=== PATIENT | male | born 1955 | race Caucasian/White ===

== ENCOUNTER 2018-10-27 16:00 | Inpatient (IN) ==
[2018-10-27] MEDS ORDERED: Pantoprazole Inj 40 MG Vial IV.PUSH ONE (17:02)
[2018-10-27] MEDS ORDERED: Morphine Inj 4 MG/ML Vial IV.PUSH ONE (17:02)
--- NOTE | 2018-10-27 17:08 | ED ---
HPI General Chief Complaint: Recheck/Abnormal Lab/Rx Stated Complaint: Poss Pancreatitis Time Seen by Provider: 10/27/18 16:39 Source: patient History of Present Illness HPI narrative: 63 year-old male with a past medical history of smoking, chronic back pain, alcohol abuse, restless leg syndrome presents to the emergency room complaining of epigastric and left lower quadrant abdominal pain that started 2 days ago. Pain is moderate to severe worse with palpation and eating and better with rest. Patient denies hematemesis or melena. Patient was seen earlier today at the [facility] and was told to report to the emergency room for acute pancreatitis. Patient denies fever, chills, nausea, vomiting or chest pain. Patient had increased alcohol intake last week with increased Zantac use. Related Data Home Medications Medication Instructions Recorded Confirmed carbidopa 10/27/18 omeprazole 20 mg PO DAILY 10/27/18 10/27/18 Allergies Allergy/AdvReac Type Severity Reaction Status Date / Time No Known Allergies Allergy Verified 10/27/18 16:01 Review of Systems Constitutional Denies fever(s) Eyes Denies change in vision ENT Denies headache(s) and Denies nasal congestion Cardiovascular Denies chest pain Respiratory Denies dyspnea Gastrointestinal Reports abdominal pain and Reports nausea Genitourinary Denies difficulty urinating Musculoskeletal Denies myalgias Integumentary/Breasts Denies rash Neurologic Denies headache(s) Psychiatric Denies depression Endocrine Denies polyuria Hematologic/Lymphatic Denies easy bruising PMFSH Medical History Medical History History of neuropathy (Acute) History of restless legs syndrome (Acute) Hx of gastroesophageal reflux (GERD) (Acute) Surgical History Surgical History History of bladder surgery (Acute) Hx of inguinal hernia repair (Acute) Hx of vasectomy (Acute) Social History Social History Substance History: No History of Abuse Second Hand Smoke Exposure: No Smoking Status: Current every day smoker Tobacco Type: Cigarettes How Often Do You Have a Drink Containing Alcohol: 2 to 4 times a month Recent Travel in [facility] within the Last 8 Weeks: No Recent Out of Country Travel within the Last 8 Weeks: No Immunization History Tetanus Immunization: <5 Years Exam Narrative Exam Narrative: GENERAL: Patient is alert and oriented -3 SKIN: Focused skin assessment warm/dry. HEAD: Atraumatic. Normocephalic. EYES: Pupils equal and round. No scleral icterus. No injection or drainage. ENT: No nasal bleeding or discharge. Mucous membranes pink and moist. NECK: Trachea midline. No JVD. CARDIOVASCULAR: Regular rate and rhythm. No murmur appreciated. RESPIRATORY: No accessory muscle use. Clear to auscultation. Breath sounds equal bilaterally. GASTROINTESTINAL: Abdomen soft, tender epigastric area and left lower quadrant, nondistended. Hepatic and splenic margins not palpable. MUSCULOSKELETAL: No obvious deformities. No clubbing. No cyanosis. No edema. NEUROLOGICAL: Awake and alert. No obvious cranial nerve deficits. Motor grossly within normal limits. Normal speech. PSYCHIATRIC: Appropriate mood and affect; insight and judgment normal. Course Reevaluation(s) Reevaluation #1: Patient condition improved during the ER course especially pain improved. Patient did have any vomiting in the ED.. I personally reexamined and counseled the patient about his diagnosis and results. Time: 18:17 Initial Documented Vital Signs Temperature 97.7 F 10/27/18 16:01 Pulse Rate 61 10/27/18 16:01 Respiratory Rate 16 10/27/18 16:01 Blood Pressure 153/79 H 10/27/18 16:01 Pulse Oximetry 98 10/27/18 16:01 Last Documented Vital Signs Temperature 97.7 F 10/27/18 16:01 Pulse Rate 66 10/27/18 17:37 Respiratory Rate 18 10/27/18 17:37 Blood Pressure 116/77 10/27/18 17:37 Pulse Oximetry 98 10/27/18 17:37 Medical Decision Making [facility] Narrative Medical Screen Exam Complete: Yes Emergency Medical Condition: Yes Lab Data Result diagrams: 10/27/18 16:45 10/27/18 16:45 Lab Results 10/27/18 10/27/18 10/27/18 Range/Units 16:45 16:45 16:45 CBC w Diff Auto diff final WBC 6.5 (4.0-11.0) th/mm3 RBC 5.11 (4.50-5.90) mil/mm3 Hgb 15.4 (13.0-17.0) gm/dL Hct 46.3 (39.0-51.0) % MCV 90.6 (80.0-100.0) fL MCH 30.1 (27.0-34.0) pg MCHC 33.2 (32.0-36.0) % RDW 12.6 (11.6-17.2) % Plt Count 161 (150-450) th/mm3 MPV 9.6 (7.0-11.0) fL Neut % (Auto) 60.0 (16.0-70.0) % Lymph % (Auto) 31.5 (9.0-44.0) % Wetzel % (Auto) 5.2 (0.0-8.0) % Eos % (Auto) 2.3 (0.0-4.0) % Baso % (Auto) 1.0 (0.0-2.0) % Neut # (Auto) 4.0 (1.8-7.7) th/mm3 Lymph # (Auto) 2.0 (1.0-4.8) th/mm3 Wetzel # (Auto) 0.3 (0.0-0.9) th/mm3 Eos # (Auto) 0.1 (0.0-0.4) th/mm3 Baso # (Auto) 0.1 (0.0-0.2) th/mm3 WBC Differential . Differential Comment . PT 9.8 (9.8-11.6) sec INR 1.0 Ratio APTT 22.6 L (23.4-31.7) sec Sodium 140 (136-145) meq/L Potassium 3.7 (3.5-5.1) meq/L Chloride 107 (98-107) meq/L Carbon Dioxide 27.3 (21.0-32.0) meq/L Anion Gap 6 (5-15) meq/L BUN 23 H (7-18) mg/dL Creatinine 0.96 (0.60-1.30) mg/dL Estimated GFR 80 L (>89) mL/min Random Glucose 95 (74-106) mg/dL Calcium 9.0 (8.5-10.1) mg/dL Magnesium 2.3 (1.5-2.5) mg/dL Total Bilirubin 0.6 (0.2-1.0) mg/dL AST 15 (15-37) U/L ALT 20 (12-78) U/L Alkaline Phosphatase 85 (45-117) U/L Troponin I Less than 0.02 L (0.02-0.05) ng/mL Total Protein 7.3 (6.4-8.2) g/dL Albumin 3.9 (3.4-5.0) g/dL Lipase 3397 H (73-393) U/L Imaging Data Radiologist's impression: Abdomen/Pelvis CT 10/27/18 16:59 CONCLUSION: 1. No acute finding is identified to explain the left lower quadrant pain. 2. Nonacute findings include severe atherosclerotic disease and 4 mm nonobstructing left renal stone. Discharge Plan Discharge Disposition Patient Disposition: ED Admit(ED Internal Use Only) Discharge Condition Condition: Fair Discharge Order Discharge Orders: ED Use Only Admit Order (Routine); Ordered 10/27/18 Ordered By: hBavin Gilman Discharge Details Discharge Comment: Case was discussed and reviewed with the admitting physician who accepted the admission to inpatient medicine Diagnosis: Acute pancreatitis Physicians Team ED Provider: Bhavin Gilman Primary Care Provider: [facility] /Orders / Referrals /Forms Prescriptions: No Action omeprazole 20 mg Capsule,Delayed Release(Dr/Ec) 20 mg PO DAILY RF: 0 carbidopa RF: 0 Status ED Status: With Doctor
[2018-10-27] MEDS ORDERED: Sod Chloride 0.9% Inj 1,000 ML IV.SIG SCH (17:15)
[2018-10-27 17:23] LABS: Baso # (Auto) 0.1 th/mm3 (0.0-0.2); Eos # (Auto) 0.1 th/mm3 (0.0-0.4); Eos % (Auto) 2.3 % (0.0-4.0); Hematocrit 46.3 % (39.0-51.0); Hemoglobin 15.4 gm/dL (13.0-17.0); Lymph % (Auto) 31.5 % (9.0-44.0); Mean Corpuscular HGB Conc 33.2 % (32.0-36.0); Mean Corpuscular Hemoglobin 30.1 pg (27.0-34.0); Mean Corpuscular Volume 90.6 fL (80.0-100.0); Mean Platelet Volume 9.6 fL (7.0-11.0); Mono # (Auto) 0.3 th/mm3 (0.0-0.9); Mono % (Auto) 5.2 % (0.0-8.0); Platelet Count 161 th/mm3 (150-450); Red Blood Count 5.11 mil/mm3 (4.50-5.90); Red Cell Distribution Width 12.6 % (11.6-17.2); White Blood Count 6.5 th/mm3 (4.0-11.0)
[2018-10-27 17:37] LABS: Activated Partial Thrombo Time 22.6 sec (23.4-31.7); Prothrombin Time 9.8 sec (9.8-11.6)
[2018-10-27 17:38] LABS: Chloride 107 meq/L (98-107); Potassium 3.7 meq/L (3.5-5.1); Sodium 140 meq/L (136-145)
[2018-10-27 17:43] LABS: Albumin 3.9 g/dL (3.4-5.0); Anion Gap 6 meq/L (5-15); Blood Urea Nitrogen 23 mg/dL (7-18); Carbon Dioxide 27.3 meq/L (21.0-32.0); Glucose,Random 95 mg/dL (74-106); Magnesium 2.3 mg/dL (1.5-2.5)
[2018-10-27 17:45] LABS: Alanine Aminotransferase 20 U/L (12-78)
[2018-10-27 17:46] LABS: Aspartate Aminotransferase 15 U/L (15-37); Glomerular Filtration Rate 80 mL/min (>89)
[2018-10-27 17:47] LABS: Total Protein 7.3 g/dL (6.4-8.2)
[2018-10-27 17:48] LABS: Alkaline Phosphatase 85 U/L (45-117)
[2018-10-27 17:49] LABS: Lipase 3397 U/L (73-393)
--- NOTE | 2018-10-27 18:00 | CT ---
EXAM DATE: 10/27/2018 5:51 PM EST AGE/SEX: 63 years / Male INDICATIONS: Lower left quadrant pain. CLINICAL DATA: This is the patient's initial encounter. Patient reports that signs and symptoms have been present for 2 days and indicates a pain score of 7/10. MEDICAL/SURGICAL HISTORY: Gastroesophageal reflux disease. Neuropathy. Inguinal hernia repair. Bladder surgery. Vasectomy. ORAL CONTRAST: No oral contrast ingested. RADIATION DOSE: 8.85 CTDI (mGy) COMPARISON: No prior exams available for comparison. TECHNIQUE: Multiple contiguous axial images were obtained through the abdomen and pelvis following b olus infusion of 95 ml Omnipaque 350 (iohexol) nonionic water-soluble contrast as a single exam dos e. No oral contrast ingested. Using automated exposure control and adjustment of the mA and/or kV ac cording to patient size, radiation dose was kept as low as reasonably achievable to obtain optimal di agnostic quality images. DICOM format image data is available electronically for review and comparis on. FINDINGS: Lower chest: No acute abnormality is identified. Hepatobiliary: No focal liver lesion is identified. Hepatic vasculature demonstrates no abnormality. No calcified gallstones are present. Kidneys: No hydronephrosis or mass. There is a 4 x 3 mm nonobstructing stone in the left mid kidney. No ureteral stone is visualized. Adrenal Glands: Within normal limits. Spleen: Within normal limits. Pancreas: Within normal limits. Vascular: The aorta is nonaneurysmal. There is severe atherosclerotic disease with ectatic infrarenal aorta. Bowel/Mesentery: The stomach and small bowel demonstrate no abnormality. No acute colon abnormality i s seen. There is no free intraperitoneal air or fluid. Appendix is normal. Sigmoid colon demonstrates no acute abnormality. Abdominal Wall: No hernia is visualized. Retroperitoneum: No lymphadenopathy. Bladder: No wall thickening or mass. Reproductive: Within normal limits. Inguinal: No lymphadenopathy or hernia. Musculoskeletal: No acute osseous abnormality is identified. There are mild degenerative changes of t he lumbar spine. CONCLUSION: 1. No acute finding is identified to explain the left lower quadrant pain. 2. Nonacute findings include severe atherosclerotic disease and 4 mm nonobstructing left renal stone . Electronically signed by: Germán Argueta MD Board Certified Radiologist 10/27/2018 5:59 PM EST
[2018-10-27 18:41] LABS: Bilirubin,Urine Negative (Negative); Clarity,Urine Clear (Clear); Color,Urine Yellow (Yellw/Straw); Glucose,Urine (UA) Negative (Negative); Leukocyte Esterase,Urine Negative (Negative); Nitrite,Urine Negative (Negative); PH,Urine 8.5 (5.0-8.5); Urobilinogen,Urine 0.2 mg/dL (Less than 2)
[2018-10-27 18:48] LABS: RBC,Urine 0-3 /hpf (0-3); Squamous Epithelial Cell,Urine 0-5 /hpf (0-5); WBC,Urine 0-5 /hpf (0-5)
[2018-10-27] MEDS: Sod Chloride 0.9% Inj 1,000 ML IV.CONT SCH (21:23)
[2018-10-27] MEDS: Morphine Inj 4 MG/ML Vial IV.PUSH PRN (22:58)
[2018-10-28] MEDS: Morphine Inj 4 MG/ML Vial IV.PUSH PRN ×2 (03:24→09:15)
[2018-10-28] MEDS: Sod Chloride 0.9% Inj 1,000 ML IV.CONT SCH (09:08)
[2018-10-28] MEDS ORDERED: Pantoprazole Sodium 20 MG DR Tablet PO SCH (11:30)
[2018-10-28] MEDS ORDERED: Aluminum/Magnesium/Simethacone Susp 30 ML UDC PO ONE (13:49)
--- NOTE | 2018-10-28 13:51 | P.HPIM ---
History of Present Illness Primary Care Physician: Physician [facility] History of Present Illness: 63-year-old white male being admitted for intractable abdominal pain Patient was in his USOH until a few days ago when he began developing worsening of his intermittent chronic abdominal pain. At that time he had drunk a good bit of alcohol at a social occasion and shortly afterwards started having a flareup of his abdominal pain. Went to his [place] doctor in the clinic, had some blood tests run, was told he had pancreatitis and was directed to go to the emergency department. Patient reports that he has been having abdominal pains over the past 5 months intermittently, has been on a PPI to address the abdominal pain as well as an NSAID to address his arthritis/carpal tunnel. He has been tried on ranitidine as well as omeprazole to no significant avail. Patient reports having normal bowel movements multiple times a day, denies any diarrhea melena or hematochezia. In the emergency department blood work was unremarkable except for an elevated lipase in the 3000. CT of the abdomen was unremarkable for any acute findings as well. Patient does report he has a history of ulcers in the past when he was much younger. Inpatient Certification Inpatient Certification: I certify that the inpatient services were ordered in accordance with Medicare regulations governing the order. This includes certification that hospital inpatient services are reasonable and necessary and in the case of services not specified as inpatient-only under 42 CFR 419.22(n), that they are appropriately provided as inpatient services in accordance to with the 2-midnight benchmark under 43 CFR 412.3(e) Estimated Total Length of Stay (Days): 2 Plans for Post Hospital Care: Not yet determined Review of Systems Review of Systems: all other systems reviewed are negative [facility] Medical History Medical History History of neuropathy (Acute) History of restless legs syndrome (Acute) Hx of gastroesophageal reflux (GERD) (Acute) Surgical History Surgical History History of bladder surgery (Acute) Hx of inguinal hernia repair (Acute) Hx of vasectomy (Acute) Social History Social History Substance History: No History of Abuse Second Hand Smoke Exposure: Yes Smoking Status: Current every day smoker Tobacco Type: Cigarettes How Often Do You Have a Drink Containing Alcohol: Monthly or less Recent Travel in [facility] within the Last 8 Weeks: No Recent Out of Country Travel within the Last 8 Weeks: No Immunization History Tetanus Immunization: Unsure Hx Influenza Vaccine This Season: Yes Medications and Allergies Allergies Allergy/AdvReac Type Severity Reaction Status Date / Time No Known Allergies Allergy Verified 10/27/18 16:01 Home Medications Medication Instructions Recorded Confirmed Type baclofen 10 mg PO BID 10/27/18 10/27/18 History carbidopa-levodopa [Sinemet] 1 tab PO HS 10/27/18 10/27/18 History carbidopa-levodopa [Sinemet] 1 tab PO QID 10/27/18 10/27/18 History omeprazole 20 mg PO DAILY 10/27/18 10/27/18 History pregabalin [Lyrica] 150 mg PO HS 10/27/18 10/27/18 History Active Medications: Active Medications Hydrocodone Bitart/Acetaminophen (Rodney 5/325) 1 tab PO Q6H PRN PRN Reason: Acute Pain Carbidopa/Levodopa (Sinemet 25/100 Mg) 1 tab PO QID [facility] Last Admin: 10/28/18 12:29 Dose: 1 tab Carbidopa/Levodopa (Sinemet 25/250 Mg) 1 tab PO HS [facility] Sodium Chloride (Ns Inj) 1,000 mls @ 84 mls/hr IV.CONT .[id number] [facility] Last Admin: 10/28/18 09:08 Dose: 84 mls/hr Pantoprazole Sodium (Protonix) 20 mg PO DAILY [facility] Last Admin: 10/28/18 11:40 Dose: 20 mg Pregabalin (Lyrica) 150 mg PO HS [facility] Sodium Chloride (Ns Flush) 2 ml IV.FLUSH BID [facility] Last Admin: 10/28/18 10:26 Dose: Not Given Sodium Chloride (Ns Flush) 2 ml IV.FLUSH PRN PRN PRN Reason: FLUSH AFTER USING IV ACCESS Physical Exam Vital signs: Vital Signs 10/27/18 16:01 10/27/18 17:37 10/27/18 19:46 Temperature 97.7 F Pulse Rate 61 66 66 Respiratory Rate 16 18 18 Blood Pressure 153/79 H 116/77 121/68 Pulse Oximetry 98 98 98 10/28/18 00:00 10/28/18 08:00 10/28/18 12:00 Temperature 97 F L 96.9 F L 97.3 F L Pulse Rate 60 55 L 56 L Respiratory Rate 20 20 20 Blood Pressure 158/98 H 134/86 143/83 H Pulse Oximetry 98 98 99 Intake & Output 10/27/18 10/28/18 10/28/18 18:59 06:59 18:59 Intake Total 1000 / 1000 1000 / 1000 Balance 1000 / 1000 1000 / 1000 Weight 74.6 kg 72.6 kg Intake: IV 1000 / 1000 1000 / 1000 NS Inj 1,000 ML @ 84 mls/hr IV. 1000 / 1000 CONT .[id number] ANTONY Rx#: [id number] NS Inj 1,000 ML @ 1000 mls/hr 1000 / 1000 IV.SIG BOLUS ANTONY Rx#:[id number] Other: # Voids 4 Weight On Admission 72.9 kg Narrative: VS: afebrile GENERAL: Awake alert, no acute distress SKIN: Warm and dry. EYES: No scleral icterus. No injection or drainage. ENT: No nasal bleeding or discharge. Mucous membranes pink and moist. CARDIOVASCULAR: Regular rate and rhythm. no murmurs RESPIRATORY: No accessory muscle use. Clear to auscultation. Breath sounds equal bilaterally. GASTROINTESTINAL: Abdomen soft, mild TTP in epigastrium, ND, benign Extremities: No clubbing, cyanosis, or edema. No obvious deformities. MUSCULOSKELETAL: grossly intact ROM in upper and lower extremities proximally; adequate muscle bulk and tone for age and habitus NEUROLOGICAL: Awake and alert. No obvious cranial nerve deficits. No facial droop nor slurred speech noted. PSYCHIATRIC: Appropriate mood and affect; insight and judgment normal. Results Labs CBC & Chem 7: 10/27/18 16:45 10/27/18 16:45 Imaging Impressions Abdomen/Pelvis CT 10/27/18 16:59 CONCLUSION: 1. No acute finding is identified to explain the left lower quadrant pain. 2. Nonacute findings include severe atherosclerotic disease and 4 mm nonobstructing left renal stone. Caprini VTE Risk Assessment Caprini VTE Risk Assessment: Moderate/High Risk (score >= 2) Caprini Risk Assessment Model: Point Value = 1 Point Value = 2 Point Value = 3 Point Value = 5 Age 41-60 Minor surgery BMI > 25 kg/m2 Swollen legs Varicose veins or History of unexplained or recurrent spontaneous Oral contraceptives or hormone replacement Sepsis (< 1 month) Serious lung disease, including pneumonia (< 1 month) Abnormal pulmonary function Acute myocardial infarction Congestive heart failure (< 1 month) History of inflammatory bowel disease Medical patient at bed rest Age 61-74 Arthroscopic surgery Major open surgery (> 45 min) Laparoscopic surgery (> 45 min) Malignancy Confined to bed (> 72 hours) Immobilizing plaster cast Central venous access Age >= 75 History of VTE Family history of VTE Factor V Leiden Prothrombin [id number] Lupus anticoagulant Anticardiolipin antibodies Elevated serum homocysteine Heparin-induced thrombocytopenia Other congenital or acquired thrombophilia Stroke (< 1 month) Elective arthroplasty Hip, pelvis, or leg fracture Acute spinal cord injury (< 1 month) Prophylaxis Regimen: Total Risk Factor Score Risk Level Prophylaxis Regimen 0-1 Low Early ambulation 2 Moderate Order ONE of the following: *Sequential Compression Device (SCD) *Heparin 5000 units SQ BID 3-4 Higher Order ONE of the following medications: *Heparin 5000 units SQ TID *Enoxaparin/Lovenox 40 mg SQ daily (WT < 150 kg, CrCl > 30 mL/min) *Enoxaparin/Lovenox 30 mg SQ daily (WT < 150 kg, CrCl > 10-29 mL/min) *Enoxaparin/Lovenox 30 mg SQ BID (WT < 150 kg, CrCl > 30 mL/min) AND/OR *Sequential Compression Device (SCD) 5 or more Highest Order ONE of the following medications: *Heparin 5000 units SQ TID (Preferred with Epidurals) *Enoxaparin/Lovenox 40 mg SQ daily (WT < 150 kg, CrCl > 30 mL/min) *Enoxaparin/Lovenox 30 mg SQ daily (WT < 150 kg, CrCl > 10-29 mL/min) *Enoxaparin/Lovenox 30 mg SQ BID (WT < 150 kg, CrCl > 30 mL/min) AND *Sequential Compression Device (SCD) Assessment and Plan Plan 63-year-old white male being admitted for abdominal pain Abdominal pain Pancreatitis evident with lipase Possible PUD from NSAID use compounded on top of pancreatitis Protonix, Maalox -Ultrasound gallbladder, if negative, proceed clear liquid diet, tolerates, can be discharged -Complete follow-up outpatient regarding H. pylori workup with PCP -Patient advised to refrain from alcohol Restless leg syndrome Continue home carbidopa levodopa, pregabalin, baclofen Addendum: Patient was originally anticipated to need a 2 midnight stay, however his overall clinical status improved faster than expected. SCDs H&P: Quality VTE Deep Vein Thrombosis/Pulmonary Embolism Present on Admission: No
--- NOTE | 2018-10-28 14:52 | US ---
EXAM DATE: 10/28/2018 2:43 PM EST AGE/SEX: 63 years / Male INDICATIONS: Gallstones. CLINICAL DATA: This is the patient's subsequent encounter. Patient reports that signs and symptoms h ave been present for 1 day and indicates a pain score of 3/10. MEDICAL/SURGICAL HISTORY: . Gastroesophageal reflux disease. Neuropathy. . Inguinal hernia rep air. Bladder surgery. Vasectomy. COMPARISON: [facility], CT ABDOMEN & PELVIS W CONTRAST, 10/27/2018. . MEASUREMENTS: Liver:__ 14.7 cm. Common Bile Duct:__ 10mm. FINDINGS: Liver: Diffuse fatty infiltration of the liver is noted. There is focal fatty sparing within the rig ht lobe. Portal Vein: Hepatopedal flow seen in portal vein. Common Duct: There is mild dilatation of the extrahepatic system. Correlation with alkaline phosphat ase and bilirubin levels is suggested to rule out biliary obstruction. Gallbladder: Demonstrates no wall thickening or pericholecystic fluid. No stones visualized. Pancreas: No focal mass is noted. Right Kidney: Normal echogenicity and cortical thickness. No mass or hydronephrosis. Other: None. CONCLUSION: 1. Diffuse fatty infiltration of the liver with focal fatty sparing in the right lobe. 2. Mild dilatation of the extrahepatic system. Correlation with alkaline phosphatase and bilirubin l evels is suggested to rule out biliary obstruction. Electronically signed by: Jed Aguillon MD Board Certified Radiologist 10/28/2018 2:50 PM EST
[2018-10-28] MEDS ORDERED: Pantoprazole Inj 40 MG Vial IV.PUSH SCH (15:00)
[2018-10-28 20:18] VITALS: BP 138/84; PULSE 52; RESP 16; TEMP 97.8; O2SAT 96
[2018-10-28] MEDS ORDERED: Pregabalin 75 MG Capsule PO SCH (21:00)
[2018-10-29] MEDS ORDERED: Pantoprazole Inj 40 MG Vial IV.PUSH SCH (12:00)
== END 2018-10-28 20:15 | disposition home or self-care (01) | DRG 440 ==
LOC: PHED 16:00 → PHEDA 18:18 → PH3 20:50
PROVIDERS: ADMIT Hospitalist; ATTEND Hospitalist
CPT/HCPCS: 74177; 76705; 80053; 81001; 83690; 83735; 84484; 85025; 85610; 85730; 90761; 90774; 90775; 96361; 96374; 96375; 99285; C8952; C9113; J2270; J2405; J7030; Q9967